=== PATIENT | male | born 1960 | race Caucasian/White ===

== ENCOUNTER → 2017-11-03 11:06 | Outpatient (CLI) | payer OTHER, SELFPAY ==
[2017-11-03 12:24] LABS: Cholesterol 194 mg/dL (140-199); Glucose 96 mg/dL (70-100); HDL Cholesterol 66 mg/dL (40-60); LDL Cholesterol Calculated 113 mg/dL (<100); Triglycerides 75 mg/dL (35-150)
== END ==
PROVIDERS: PCP Family Medicine; Visit Provider Family Medicine
DX: Z13.1 Encounter for screening for diabetes mellitus (principal); Z13.220 Encounter for screening for lipoid disorders
CPT/HCPCS: 36415; 80061; 82947

== ENCOUNTER → 2017-11-16 06:47 | Outpatient (CLI) | payer OTHER, SELFPAY | PROVIDERS: PCP Family Medicine; Visit Provider Family Medicine | DX: G43.909 Migraine, unspecified, not intractable, without status migrainosus (principal); Z53.20 Procedure and treatment not carried out because of patient's decision for unspecified reasons ==

== ENCOUNTER 2017-11-23 12:15 | Outpatient (RCR) | payer OTHER, SELFPAY ==
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
--- NOTE | 2017-11-10 15:11 | PT.OPPOC ---
Current Diagnoses Cervicalgia (11/10/17) Abnormal posture (11/10/17) Weakness (11/10/17) Provider Visit Care Team Role Provider Type Dacia Jay MD Attending Provider Physician Primary Care Provider Specialty: [facility] Address: [address] [place] [address], [facility] Email: [email or web address] Plan Of Care PT-OP-T Assessment and Plan Start: 11/10/17 09:13 Freq: Status: Active Protocol: Document 11/10/17 11:16 [facility] (Rec: 11/10/17 15:10 [facility] [id number]) Physical Therapy Assessment Rehab Potential Rehabilitation Potential Good Evaluation Complexity Number of Personal Factors/Comorbidities 3 or More Number of Body Systems Impaired 4 or More Clinical Presentation at Evaluation Evolving Impairments Impairments Activity Tolerance Functional Activities Functional Mobility Pain Posture ROM Soft Tissue Mobility Strength Goals One Impairment ROM Short Term Goal (STG) Pt will be indep with HEP STG Duration 11/23/17 Labor Gang Supervisor Goal (LTG) Pt will have full cervical ROM to allow him to do typical activities LTG Duration 12/10/17 Physical Therapy Plan Frequency and Duration Frequency of Treatment 2x/Week Duration of Treatment 1 month Plan of Care Start Date 11/10/17 Plan of Care End Date 12/10/17 Therapeutic Interventions Therapeutic Interventions Aquatic Therapy Home Exercise Program Joint Mobilizations Manual Therapy Soft Tissue Mobilization Taping Therapeutic Activities Therapeutic Exercises Modalities Cold Pack/Ice Massage Electric Stimulation Hot Packs Traction- Mechanical Ultrasound Next Visit Focus/Plan Next Note Type Treatment Note Next Visit Plan foam roll, thread the needle, Habd & scaption of shoulder, axial elongation, STM to cervical region, thoracic mobs Plan of Care Dates Plan of Care Start Date 11/10/17 Plan of Care End Date 12/10/17 Please Sign and Return: I have reviewed this Plan of Care and certify that the skilled therapy services above are required to meet the patient?s needs. Physician Signature Date Printed Name and Credentials Clinical Instructor Signature Printed Name and Credentials
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
== END 2018-02-08 16:13 ==
LOC: PHYS 12:15
PROVIDERS: PCP Family Medicine; Visit Provider Family Medicine
DX: M54.2 Cervicalgia (principal)
CPT/HCPCS: 97110; 97140; 97162; 97530

== ENCOUNTER → 2017-11-24 08:09 | Outpatient (CLI) | payer OTHER, SELFPAY ==
--- NOTE | 2017-11-24 | DI.MRI.S_ITS ---
PROCEDURE: MR HEAD/BRAIN WO CON INDICATIONS: MIGRAINE HEADACHE TECHNIQUE: Noncontrast axial T1 spin echo, axial T2 fast spin echo, sagittal and axial FLAIR, coronal T2 fast spin echo, axial gradient echo, axial diffusion and ADC through the brain. COMPARISON: [facility], MR, MR CERVICAL SPINE WO CON, 11/24/2017, 8:54. FINDINGS: Image quality: Excellent. CSF Spaces: Basal cisterns are patent. No extra-axial fluid collections. Ventricles are normal in size and shape. Brain: No intracranial masses or hemorrhage. Mendoza/white matter interface is normal. Brainstem appears normal. Diffusion-weighted images demonstrate no acute ischemic insult. No chronic ischemic insults. Normal intravascular flow voids are present. Skull and face: Calvarium has normal marrow signal. Orbits appear normal. Sinuses: Sinuses and mastoids are clear. IMPRESSION: Unremarkable noncontrast MRI, without an imaging explanation found for the patient's presenting history of migraine headaches. Dictated by: Alexandre Hampton M.D. on 11/24/2017 at 9:36 Approved by: Alexandre Hampton M.D. on 11/24/2017 at 9:38
--- NOTE | 2017-11-24 | DI.MRI.S_ITS ---
PROCEDURE: MR CERVICAL SPINE WO CON INDICATIONS: MIGRAINE HEADACHE. NECK PAIN TECHNIQUE: Noncontrast sagittal T1 spin echo and T2 fast spin echo, sagittal STIR, foraminal oblique sagittal T2 fast spin echo, and axial gradient echo or T2 fast spin echo through the cervical spine. COMPARISON: [facility], MR, MR HEAD/BRAIN WO CON, 11/24/2017, 8:30. FINDINGS: Image quality: Excellent. Alignment and Curvature: There is normal bony alignment. Bone Marrow: Marrow demonstrates normal overall signal. Spinal Cord: Visualized spinal cord has normal size and signal. No cerebellar tonsillar herniation. Paraspinous Soft Tissues: No paravertebral masses. Prevertebral soft tissues are normal in thickness. C2-C3: No significant abnormality is seen. C3-C4: Minimal to mild loss of disc height is seen. A mild degree of generalized disc osteophyte complex is seen. There is moderate right-sided and mild left-sided facet hypertrophy seen. There is moderate to severe right-sided and moderate left-sided neural foraminal narrowing seen. Moderate central canal narrowing is seen. C4-C5: The disc height is well-preserved. A mild degree of generalized disc osteophyte complex is seen. There is a central disc osteophyte protrusion seen, as on series 5 image 23. Mild to moderate facet hypertrophy is seen. There is moderate right-sided and mild to moderate left-sided neural foraminal narrowing seen. Moderate central canal narrowing is seen, with associated mass effect upon the ventral spinal cord. C5-C6: Moderate loss of disc height is seen. There is loss of disc signal. Moderate disc osteophyte complex is seen, which is eccentric to the left. Uncovertebral joint hypertrophy is seen at this level. There is a central/left disc protrusion seen, as on series 5 image 27. Moderate facet joint hypertrophy is seen. There is moderate to severe right-sided and moderate left-sided neural foraminal narrowing seen. Moderate central canal narrowing is seen at this level, with associated mass effect upon the ventral spinal cord. C6-C7: Moderate loss of disc height is seen. Loss of disc signal is seen. Moderate generalized disc osteophyte complex is seen. Uncovertebral joint hypertrophy is seen at this level. There is mild to moderate right-sided and mild left-sided facet hypertrophy seen. There is moderate to severe left-sided and minimal right-sided neural foraminal narrowing seen. Moderate central canal narrowing is seen, with mass effect upon the ventral spinal cord, as on series 5 image 32. C7-T1: No significant abnormality is seen. IMPRESSION: Multiple levels of cervical spine degenerative change are seen, which are most prominent at the C5-C6 and the C6-C7 levels. Dictated by: Alexandre Hampton M.D. on 11/24/2017 at 9:38 Approved by: Alexandre Hampton M.D. on 11/24/2017 at 9:43
== END ==
PROVIDERS: PCP Family Medicine; Visit Provider Family Medicine
DX: G43.909 Migraine, unspecified, not intractable, without status migrainosus (principal); M50.322 Other cervical disc degeneration at C5-C6 level
CPT/HCPCS: 70551; 72141

== ENCOUNTER → 2018-09-22 09:46 | Outpatient (CLI) | payer OTHER, SELFPAY ==
[2018-09-22 10:49] LABS: Cholesterol 177 mg/dL (140-199); HDL Cholesterol 56 mg/dL (40-60); LDL Cholesterol Calculated 107 mg/dL (<100); Triglycerides 70 mg/dL (35-150)
== END ==
PROVIDERS: PCP Family Medicine; Visit Provider Family Medicine
DX: E78.5 Hyperlipidemia, unspecified (principal)
CPT/HCPCS: 36415; 80061

== ENCOUNTER → 2019-08-02 09:04 | Outpatient (CLI) | payer OTHER, SELFPAY ==
--- NOTE | 2019-08-02 09:05 | DI.MRI.S_ITS ---
PROCEDURE: MR CERVICAL SPINE WO CON INDICATIONS: worsening neck pain/headaches, hx cervical degen TECHNIQUE: Noncontrast sagittal T1 spin echo and T2 fast spin echo, sagittal STIR, foraminal oblique sagittal T2 fast spin echo, and axial gradient echo or T2 fast spin echo through the cervical spine. COMPARISON: [facility], MR, MR CERVICAL SPINE WO CON, 11/24/2017, 8:54. FINDINGS: Image quality: Excellent. Alignment and Curvature: There is normal bony alignment. Bone Marrow: Marrow demonstrates normal overall signal. Spinal Cord: Visualized spinal cord has normal size and signal. No cerebellar tonsillar herniation. Paraspinous Soft Tissues: No paravertebral masses. Prevertebral soft tissues are normal in thickness. C2-C3: The disc height is well-preserved. Loss of disc signal is seen at this level. Moderate disc osteophyte complex is seen, which is eccentric to the right. Mild bilateral neural foraminal narrowing is seen. Mild central canal narrowing is seen. When comparison is made with the prior examination, these findings are similar. C3-C4: Moderate loss of disc height is seen. Loss of disc signal is seen. Moderate disc osteophyte complex is seen, which is eccentric to the right. There is moderate to prominent right-sided and moderate left-sided neural foraminal narrowing seen. There is moderate to severe right-sided and mild left-sided neural foraminal narrowing seen. Mild to moderate central canal narrowing is seen. When comparison is made with the prior examination, these findings are similar. C4-C5: The disc height is well-preserved. Loss of disc signal is seen at this level. Moderate disc osteophyte complex is seen, with a mild central disc protrusion. Moderate facet joint hypertrophy is seen. Moderate bilateral neural foraminal narrowing is seen, left worse than right. Mild to moderate central canal narrowing is seen. When comparison is made with the prior examination, these findings are similar. C5-C6: Moderate loss of disc height is seen. Loss of disc signal is seen. Moderate disc osteophyte complex is seen, which is eccentric to the left. There is a central/left disc osteophyte protrusion seen, as on series 4 image 32. There is at least moderate right-sided and mild to moderate left-sided facet hypertrophy seen. There is moderate to severe right-sided and mild to moderate left-sided neural foraminal narrowing seen. Moderate to severe central canal narrowing is seen at this level. There is associated mass effect upon the ventral spinal cord. When comparison is made with the prior examination, these findings are similar. C6-C7: Moderate loss of disc height is seen. Loss of disc signal is seen. Moderate disc osteophyte complex is seen, which is eccentric to the left. There is a central/left disc osteophyte protrusion, as on series 4 image 37. Uncovertebral joint hypertrophy is seen at this level. There is moderate to severe left-sided and minimal right-sided neural foraminal narrowing seen. Moderate central canal narrowing is seen. There is associated mass effect upon the ventral spinal cord. When comparison is made with the prior examination, these findings are similar. C7-T1: Level within normal limits. IMPRESSION: Multiple levels of cervical spine degenerative change are seen, which are similar 2018. Dictated by: Alexandre Hampton M.D. on 08/02/2019 at 9:54 Approved by: Alexandre Hampton M.D. on 08/02/2019 at 10:02
== END ==
PROVIDERS: PCP Family Medicine; Referring Provider Family Medicine; Visit Provider Family Medicine
DX: G43.909 Migraine, unspecified, not intractable, without status migrainosus (principal); M54.2 Cervicalgia; M47.812 Spondylosis without myelopathy or radiculopathy, cervical region; G89.29 Other chronic pain
CPT/HCPCS: 72141

== ENCOUNTER → 2020-11-13 09:25 | Outpatient (CLI) | payer OTHER, SELFPAY ==
[2020-11-13 10:30] LABS: Cholesterol 178 mg/dL (140-199); Glucose 109 mg/dL (80-110); HDL Cholesterol 57 mg/dL (40-60); LDL Cholesterol Calculated 111 mg/dL (<100); Triglycerides 52 mg/dL (35-150)
[2020-11-13 11:01] LABS: Prostate Specific Antigen 1.24 ng/mL (0.10-4.00)
== END ==
PROVIDERS: Family Medicine; PCP Family Medicine; Referring Provider Family Medicine; Visit Provider Family Medicine
DX: Z12.5 Encounter for screening for malignant neoplasm of prostate (principal); Z13.0 Encounter for screening for diseases of the blood and blood-forming organs and certain disorders involving the immune mechanism; Z13.220 Encounter for screening for lipoid disorders
CPT/HCPCS: 36415; 80061; 82947; 84153

== ENCOUNTER → 2023-03-10 08:37 | Outpatient (CLI) | payer OTHER, SELFPAY ==
[2023-03-10 10:20] LABS: Cholesterol 190 mg/dL (140-199); Glucose 99 mg/dL (80-110); HDL Cholesterol 64 mg/dL (40-60); LDL Cholesterol Calculated 105 mg/dL (<100); Triglycerides 104 mg/dL (35-150)
[2023-03-10 10:49] LABS: Prostate Specific Antigen Scrn 1.51 ng/mL (0.1-4.0)
== END ==
PROVIDERS: PCP Family Medicine; Referring Provider Family Medicine; Visit Provider Family Medicine
DX: E78.5 Hyperlipidemia, unspecified (principal); Z13.1 Encounter for screening for diabetes mellitus; Z12.5 Encounter for screening for malignant neoplasm of prostate
CPT/HCPCS: 36415; 80061; 82947; G0103